=== PATIENT | male | born 1930 | race Caucasian/White ===

== ENCOUNTER 2017-01-01 23:24 | Inpatient (IN) | payer MEDICARE, OTHER ==
[~2017-01-01] VITALS: Ht 182.9 cm; Wt 68.0 kg
[2017-01-01 23:24] VITALS: BP 123/50
--- NOTE | 2017-01-01 23:33 | Emergency Room Report ---
History of Present Illness General Chief Complaint: Generalized Weakness Source: Patient Present Illness HPI Is an 86-year-old male with multiple medical problems. He lives with 2 roommates at home. He presents with chief complaint of altered mental status. He fell last week with a head injury. Did not go to the doctor or ER. Patient call 911 because of generalized weakness. Especially stands up. According to middleware engineer, when they stood him up he stiffen up with eyes chemical in the back of his head. After minute he is back to baseline. No new trauma. No fever or chills. No chest pain. No diaphoresis. No palpitation. I spoke to patient shovel mechanic and power of commercial real estate attorney. His name is Thompson Ward, . He said that system fall last week patient would go through episodes of problems speaking. He also also complaining of a problem with gripping things. Allergies: Coded Allergies: No Known Allergies (Verified , 01/30/08) Patient History Past Medical History: see triage record, old chart reviewed Past Surgical History: other Pertinent Family History: none Social History: Denies: smoking Immunizations: other Reviewed Nursing Documentation: PMH: Agreed, PSxH: Agreed Nursing Documentation-PMH Hx Cancer: Yes - PROSTATE Hx Neurological Problems: Yes - PARKINSONS Review of Systems Constitutional: Reports: weakness Eye: Denies: eye pain, blurred vision ENT: Denies: ear pain, nose congestion, throat swelling Respiratory: Denies: cough, shortness of breath Cardiovascular: Denies: chest pain, palpitations Gastrointestinal: Denies: abdominal pain, diarrhea, nausea, vomiting Musculoskeletal: Denies: back pain, joint pain Skin: Denies: rash Neurological: Denies: headache, numbness Endocrine: Denies: increased thirst, increased urine Hematologic/Lymphatic: Denies: easy bruising All Other Systems: negative except mentioned in HPI Physical Exam Vital Signs Date Time Temp Pulse Resp B/P (MAP) Pulse Ox O2 Delivery O2 Flow Rate FiO2 01/01/17 23:20 97.3 56 15 123/50 99 Room Air vitals normal Sp02 EP Interpretation: reviewed, normal General Appearance: well appearing, no apparent distress, alert Head: normocephalic, other - Ecchymosis and small hematoma to the right parietal/forehead area. Eyes: bilateral eye PERRL, bilateral eye EOMI ENT: hearing grossly normal, normal pharynx Neck: full range of motion, supple, no meningismus Respiratory: chest non-tender, lungs clear, normal breath sounds Cardiovascular #1: regular rate, rhythm, no murmur Gastrointestinal: normal bowel sounds, non tender, no mass, no organomegaly, no bruit, non-distended Musculoskeletal: back normal, normal range of motion Psychiatric: mood/affect normal Skin: warm/dry Medical Decision Making Diagnostic Impression: Primary Impression: Syncope Qualified Codes: R55 - Syncope and collapse Additional Impressions: TIA (transient ischemic attack) Qualified Codes: G45.9 - Transient cerebral ischemic attack, unspecified Weakness ER Course Patient with syncope. He may have multiple TIA. Not a candidate for TPA since no symptoms now. No evidence of any bleed. I gave him aspirin here. No evidence of infection. Will admit for further workup. I contacted Dr. Lennon. She will admit for Dr. Dias. Laboratory Tests Test 01/01/17 23:50 White Blood Count 6.7 K/UL (4.8-10.8) Red Blood Count 3.70 M/UL (4.70-6.10) L Hemoglobin 11.0 G/DL (14.2-18.0) L Hematocrit 34.9 % (42.0-52.0) L Mean Corpuscular Volume 94 FL (80-99) Mean Corpuscular Hemoglobin 29.6 PG (27.0-31.0) Mean Corpuscular Hemoglobin Concent 31.5 G/DL (32.0-36.0) L Red Cell Distribution Width 12.3 % (11.6-14.8) Platelet Count 210 K/UL (150-450) Mean Platelet Volume 6.5 FL (6.5-10.1) Neutrophils (%) (Auto) 72.1 % (45.0-75.0) Lymphocytes (%) (Auto) 14.0 % (20.0-45.0) L Monocytes (%) (Auto) 9.2 % (1.0-10.0) Eosinophils (%) (Auto) 3.3 % (0.0-3.0) H Basophils (%) (Auto) 1.5 % (0.0-2.0) Urine Color Pale yellow Urine Appearance Clear Urine pH 5 (4.5-8.0) Urine Specific [place] 1.020 (1.005-1.035) Urine Protein 1+ (NEGATIVE) H Urine Glucose (UA) Negative (NEGATIVE) Urine Ketones Negative (NEGATIVE) Urine Occult Blood 1+ (NEGATIVE) H Urine Nitrite Negative (NEGATIVE) Urine Bilirubin Negative (NEGATIVE) Urine Urobilinogen Normal MG/DL (0.0-1.0) Urine Leukocyte Esterase 1+ (NEGATIVE) H Urine RBC 2-4 /HPF (0 - 0) H Urine WBC 2-4 /HPF (0 - 0) Urine Squamous Epithelial Cells Occasional /LPF Urine Bacteria Occasional /HPF (NONE) Sodium Level 135 MMOL/L (136-145) L Potassium Level 4.0 MMOL/L (3.5-5.1) Chloride Level 101 MMOL/L (98-107) Carbon Dioxide Level 27 MMOL/L (21-32) Anion Gap 7 (5-15) Blood Urea Nitrogen 33 mg/dL (7-18) H Creatinine 1.1 MG/DL (0.55-1.30) Estimat Glomerular Filtration Rate mL/min (>60) Glucose Level 129 MG/DL (74-106) H Calcium Level 8.6 MG/DL (8.5-10.1) Total Bilirubin 0.4 MG/DL (0.2-1.0) Aspartate Amino Transf (AST/SGOT) 13 U/L (15-37) L Alanine Aminotransferase (ALT/SGPT) 8 U/L (12-78) L Alkaline Phosphatase 34 U/L (46-116) L Total Creatine Kinase 22 U/L (26-308) L Creatine Kinase MB 0.6 NG/ML (0.0-3.6) Creatine Kinase MB Relative Index 2.7 Troponin I 0.017 ng/mL (0.000-0.056) Pro-B-Type Natriuretic Peptide 810 (0-125) H Total Protein 6.9 G/DL (6.4-8.2) Albumin 3.5 G/DL (3.4-5.0) Globulin 3.4 g/dL Albumin/Globulin Ratio 1.0 (1.0-2.7) Lab Results Impression labs unremarkable EKG Diagnostic Results Rate: bradycardiac Rhythm: NSR ST Segments: no acute changes Rhythm Strip Diag. Results Rhythm Strip Time: 23:33 EP Interpretation: yes Rate: 55 Rhythm: NSR, no PVC's, no ectopy Chest X-Ray Diagnostic Results Chest X-Ray Diagnostic Results : Chest X-Ray Ordered: Yes # of Views/Limited/Complete: 1 View Indication: Chest Pain EP Interpretation: Yes Interpretation: no consolidation, no effusion, no pneumothorax, no acute cardiopulmonary disease Impression: No acute disease Electronically Signed by: Electronically signed by Alvaro Hines MD Last Vital Signs Date Time Temp Pulse Resp B/P (MAP) Pulse Ox O2 Delivery O2 Flow Rate FiO2 01/01/17 23:20 97.3 56 15 123/50 99 Room Air Status: improved Disposition: ADMITTED INPATIENT Condition: Serious ALVARO HINES M.D. Jan 01, 2017 23:33
[2017-01-02] VITALS (7 sets, daily range): BP systolic 123–145; BP diastolic 53–66
[2017-01-02 00:09] LABS: APPEARANCE,URINE CLEAR; KETONES,URINE NEGATIVE (NEGATIVE); LEUKOCYTE ESTERASE ,URINE 1+ (NEGATIVE); NITRITE,URINE NEGATIVE (NEGATIVE); PH,URINE 5 (4.5-8.0); PROTEIN,URINE 1+ (NEGATIVE); UROBILINOGEN,URINE NORMAL MG/DL (0.0-1.0)
[2017-01-02 00:10] LABS: BASOPHILS % (AUTO) 1.5 % (0.0-2.0); EOSINOPHILS % (AUTO) 3.3 % (0.0-3.0); MEAN CORPUSCULAR HEMOGLOBIN 29.6 PG (27.0-31.0); MEAN CORPUSCULAR HGB CONC 31.5 G/DL (32.0-36.0); MEAN CORPUSCULAR VOLUME 94 FL (80-99); MEAN PLATELET VOLUME 6.5 FL (6.5-10.1); MONOCYTES % (AUTO) 9.2 % (1.0-10.0); NEUTROPHILS % (AUTO) 72.1 % (45.0-75.0); PLATELET COUNT 210 K/UL (150-450); RED CELL DISTRIBUTION WIDTH 12.3 % (11.6-14.8); WHITE BLOOD COUNT 6.7 K/UL (4.8-10.8)
[2017-01-02 00:29] LABS: BACTERIA,URINE OCCASIONAL /HPF; SQUAMOUS EPITHELIAL CELL,UR OCCASIONAL /LPF (NONE/OCC)
[2017-01-02 00:39] LABS: ALANINE AMINOTRANSFERASE 8 U/L (12-78); ANION GAP 7 (5-15); ASPARTATE AMINO TRANSFERASE 13 U/L (15-37); CALCIUM 8.6 MG/DL (8.5-10.1); CARBON DIOXIDE 27 MMOL/L (21-32); CHLORIDE 101 MMOL/L (98-107); CKMB 0.6 NG/ML (0.0-3.6); CREATININE 1.1 MG/DL (0.55-1.30); SODIUM 135 MMOL/L (136-145); TOTAL PROTEIN 6.9 G/DL (6.4-8.2)
[2017-01-02] MEDS ORDERED: GLAUCOMA EYE DROPS (01:49)
[2017-01-02] MEDS ORDERED: FLUOXETINE HCL10 MG ORAL (01:49)
[2017-01-02] MEDS ORDERED: ALLOPURINOL100 M1 ORAL (01:49)
[2017-01-02] MEDS ORDERED: Aspirin Baby 81mg ORAL ONE (02:15)
--- NOTE | 2017-01-02 08:51 | History and Physical ---
History of Present Illness General Date patient seen: Jan 02, 2017 Time patient seen: 08:51 Reason for Hospitalization: Syncope Present Illness HPI 86y/o male with pmh of gout, depression, borderline DM, prostate CA who presents with syncope and AMS. Pt had a fall abt 1 week ago at home--he fell down and bumped his R side of his head. He did not see a doctor. He notes dizziness with standing, like he is abt to passout. He describes it as lightheadedness, vertigo and imbalance. He also c/o generalized weakness. The paramedics were called in and when they stood him up, he stiffened up and his eyes rolled back and he was unresponsive. After about a minute, he became responsive again. Currently, pt feels well while lying in bed. Denies f/c, n/v, d/c, chest pain, SOB, abd pain Allergies: Coded Allergies: No Known Allergies (Verified , 01/30/08) Medication History Scheduled Allopurinol* (Allopurinol*), 100 MG ORAL DAILY, (Reported) Fluoxetine Hcl* (Fluoxetine Hcl*), 10 MG ORAL DAILY, (Reported) Miscellaneous Medications [Glaucoma Eye Drops], (Reported) Patient History History Provided By: Patient, Medical Record, EMS Healthcare decision maker Resuscitation status Full Code Advanced Directive on File No Past Medical/Surgical History Past Medical/Surgical History: (1) Prostate CA (2) Gout (3) Depression (4) Borderline diabetes mellitus Family History Family History: Patient reports no known family medical history. Social History Social History: (1) Lives with roommates Review of Systems Constitutional: Reports: weakness Eye: Reports: no symptoms ENT: Reports: no symptoms Respiratory: Reports: no symptoms Cardiovascular: Reports: no symptoms Gastrointestinal: Reports: no symptoms Genitourinary: Reports: no symptoms Musculoskeletal: Reports: no symptoms Skin: Reports: no symptoms Psychiatric: Reports: no symptoms Neurological: Reports: syncope, dizziness Endocrine: Reports: no symptoms Hematologic/Lymphatic: Reports: no symptoms Physical Exam Physical Exam Narrative General: alert, cooperative, no distress, appears stated age Head: normocephalic, without obvious abnormality, atraumatic Eyes: conjunctivae/corneas clear. PERRL, EOM's intact Throat: lips, mucosa, and tongue normal. MMM Neck: supple, symmetrical, trachea midline, and no JVD Lungs: clear to auscultation bilaterally Heart: regular rate and rhythm, S1, S2 normal, no murmur, click, rub or gallop Abdomen: soft, non-tender, non-distended, bowel sounds normal; no masses or organomegaly Extremities: extremities normal, atraumatic, no cyanosis or edema Pulses: 2+ and symmetric Skin: skin color, texture, turgor normal; no rashes or lesions Neurologic: grossly normal, no focal deficits Last 24 Hour Vital Signs Date Time Temp Pulse Resp B/P (MAP) Pulse Ox O2 Delivery O2 Flow Rate FiO2 01/02/17 08:34 97.1 59 20 145/59 97 Room Air 01/02/17 04:00 61 01/02/17 04:00 97.9 59 18 144/66 98 Room Air 01/02/17 02:32 97.3 59 17 128/57 97 Room Air 01/02/17 02:32 97.5 58 18 129/55 99 Room Air 01/02/17 01:24 97.5 57 17 128/58 97 Room Air 01/01/17 23:24 97.3 55 15 123/50 99 Room Air 01/01/17 23:20 97.3 56 15 123/50 99 Room Air Intake and Output 01/02/17 01/03/17 19:00 07:00 Intake Total 240 ml Output Total 300 ml Balance -60 ml Intake Oral 240 ml Output Urine Total 300 ml Laboratory Tests Test 01/01/17 23:50 White Blood Count 6.7 K/UL (4.8-10.8) Red Blood Count 3.70 M/UL (4.70-6.10) L Hemoglobin 11.0 G/DL (14.2-18.0) L Hematocrit 34.9 % (42.0-52.0) L Mean Corpuscular Volume 94 FL (80-99) Mean Corpuscular Hemoglobin 29.6 PG (27.0-31.0) Mean Corpuscular Hemoglobin Concent 31.5 G/DL (32.0-36.0) L Red Cell Distribution Width 12.3 % (11.6-14.8) Platelet Count 210 K/UL (150-450) Mean Platelet Volume 6.5 FL (6.5-10.1) Neutrophils (%) (Auto) 72.1 % (45.0-75.0) Lymphocytes (%) (Auto) 14.0 % (20.0-45.0) L Monocytes (%) (Auto) 9.2 % (1.0-10.0) Eosinophils (%) (Auto) 3.3 % (0.0-3.0) H Basophils (%) (Auto) 1.5 % (0.0-2.0) Urine Color Pale yellow Urine Appearance Clear Urine pH 5 (4.5-8.0) Urine Specific [place] 1.020 (1.005-1.035) Urine Protein 1+ (NEGATIVE) H Urine Glucose (UA) Negative (NEGATIVE) Urine Ketones Negative (NEGATIVE) Urine Occult Blood 1+ (NEGATIVE) H Urine Nitrite Negative (NEGATIVE) Urine Bilirubin Negative (NEGATIVE) Urine Urobilinogen Normal MG/DL (0.0-1.0) Urine Leukocyte Esterase 1+ (NEGATIVE) H Urine RBC 2-4 /HPF (0 - 0) H Urine WBC 2-4 /HPF (0 - 0) Urine Squamous Epithelial Cells Occasional /LPF Urine Bacteria Occasional /HPF (NONE) Sodium Level 135 MMOL/L (136-145) L Potassium Level 4.0 MMOL/L (3.5-5.1) Chloride Level 101 MMOL/L (98-107) Carbon Dioxide Level 27 MMOL/L (21-32) Anion Gap 7 (5-15) Blood Urea Nitrogen 33 mg/dL (7-18) H Creatinine 1.1 MG/DL (0.55-1.30) Estimat Glomerular Filtration Rate mL/min (>60) Glucose Level 129 MG/DL (74-106) H Calcium Level 8.6 MG/DL (8.5-10.1) Total Bilirubin 0.4 MG/DL (0.2-1.0) Aspartate Amino Transf (AST/SGOT) 13 U/L (15-37) L Alanine Aminotransferase (ALT/SGPT) 8 U/L (12-78) L Alkaline Phosphatase 34 U/L (46-116) L Total Creatine Kinase 22 U/L (26-308) L Creatine Kinase MB 0.6 NG/ML (0.0-3.6) Creatine Kinase MB Relative Index 2.7 Troponin I 0.017 ng/mL (0.000-0.056) Pro-B-Type Natriuretic Peptide 810 (0-125) H Total Protein 6.9 G/DL (6.4-8.2) Albumin 3.5 G/DL (3.4-5.0) Globulin 3.4 g/dL Albumin/Globulin Ratio 1.0 (1.0-2.7) Height (Feet): 6 Height (Inches): 8.00 Weight (Pounds): 150 Medications Current Medications Medications (Trade) Dose Ordered Sig/Sony Route PRN Reason Start Time Stop Time Status Last Admin Dose Admin Acetaminophen (Tylenol) 650 mg Q4H PRN ORAL Mild Pain (Pain Scale 1-3) 01/02/17 02:15 02/01/17 02:14 Dextrose (Dextrose 50%) STAT PRN IV Hypoglycemia 01/02/17 02:15 02/01/17 02:14 Influenza Virus Vaccine Quadrival (Flu Vaccine Quadrivalent) 0.5 ml ONCE ONCE IM 01/02/17 09:00 01/02/17 09:01 Pneumococcal Polyvalent Vaccine (Pneumovax) 0.5 ml ONCE ONCE IM 01/02/17 10:00 01/02/17 10:01 Sodium Chloride 1,000 ml @ 75 mls/hr [id number] IVLG 01/02/17 03:02 02/01/17 03:01 01/02/17 03:19 Assessment/Plan Problem List: (1) Syncope ICD Codes: R55 - Syncope and collapse SNOMED: 001900229, [id number] Qualifiers: Qualified Codes: R55 - Syncope and collapse (2) Generalized weakness ICD Codes: R53.1 - Weakness SNOMED: 97768293 (3) Acute encephalopathy ICD Codes: G93.40 - Encephalopathy, unspecified SNOMED: 7776885 (4) MCI (mild cognitive impairment) ICD Codes: G31.84 - Mild cognitive impairment, so stated SNOMED: 232199075 (5) Gout ICD Codes: M10.9 - Gout, unspecified SNOMED: 81723926 (6) Depression ICD Codes: F32.9 - Major depressive disorder, single episode, unspecified SNOMED: 16260896 (7) Prostate CA ICD Codes: C61 - Malignant neoplasm of prostate SNOMED: 926056257 (8) Borderline diabetes mellitus ICD Codes: R73.03 - Prediabetes SNOMED: 471888493 Status: stable Assessment/Plan Syncope likely 2/2 orthostatic hypotension Admit inpt Trend trop/EKG Check orthostatic vitals Check TTE Check carotid duplex Cardiology eval Neurology eval PT/OT eval Cont home meds DVT Prophylaxis: SCD, HSQ Code Status: Full Hospital Classification Declaration: Based on this initial evaluation, and depending on the patient's clinical course, I anticipate that this patient will require hospitalization for 2-3 days for syncope and close respiratory/ hemodynamic monitoring. Disposition: Once the patient is stable to leave the hospital, I anticipate the patient will likely be discharged to the following environment: home with HH vs SNF I spent 70 minutes on this patient's case, and 40 minutes were dedicated to counseling and/or care coordination. Discussed with patient/family, nursing staff, SW/CM, cardiology, neurology regarding clinical status, treatment course , and disposition planning. Time of note may not reflect time of encounter. Jammie Hernandez M.D. Jan 02, 2017 08:51
[2017-01-02] MEDS ORDERED: Flu Vaccine Quadrivalent 0.5ml IM ONE (09:00)
--- NOTE | 2017-01-02 09:04 | Diagnostic Imaging Report ---
Indication: TRAUMA, pain, status post fall Technique: spiral acquisitions obtained through the brain. Angled axial and coronal 5 x 5 mm slices were reconstructed. No IV contrast utilized. Radiation dose was minimized using automated exposure control Total dose length product 1400 mGycm. CTDIvol(s) 70 mGy Comparison: none FINDINGS: No acute hemorrhage or edema. No mass effect or midline shift. There is age-related enlargement of the ventricles and extra axial CSF spaces. There is periventricular deep white matter ischemic change. Normal aburto-white differentiation. Visualized orbits are unremarkable. Visualized sinuses are unremarkable. Intact calvarium. Small focus of soft tissue swelling is seen in the right temporal scalp, and questionably in the left temporal scalp as well. IMPRESSION: Chronic and age-related changes. Negative for acute intracranial bleed or mass effect Evidence of right and possibly left temporal scalp soft tissue injury This agrees with the preliminary interpretation provided overnight by [facility] teleradiology service. The CT scanner at [facility] is accredited by the [employer] and the scans are performed using protocols designed to limit radiation exposure to as low as reasonably achievable to attain images of sufficient resolution adequate for diagnostic evaluation
[2017-01-02] MEDS ORDERED: Pneumococcal Vaccine 25mcg/0.5ml IM ONE (10:00)
[2017-01-02] MEDS: FLUoxetine 10mg cap ORAL SCH (10:45)
[2017-01-02] MEDS: Allopurinol 100mg Tab ORAL SCH (10:45)
[2017-01-02 10:57] LABS: BASOPHILS % (AUTO) 0.8 % (0.0-2.0); EOSINOPHILS % (AUTO) 3.9 % (0.0-3.0); MEAN CORPUSCULAR HEMOGLOBIN 30.7 PG (27.0-31.0); MEAN CORPUSCULAR HGB CONC 33.2 G/DL (32.0-36.0); MEAN CORPUSCULAR VOLUME 93 FL (80-99); MEAN PLATELET VOLUME 7.1 FL (6.5-10.1); MONOCYTES % (AUTO) 10.5 % (1.0-10.0); NEUTROPHILS % (AUTO) 68.8 % (45.0-75.0); PLATELET COUNT 176 K/UL (150-450); RED BLOOD COUNT 3.51 M/UL (4.70-6.10); RED CELL DISTRIBUTION WIDTH 12.7 % (11.6-14.8); WHITE BLOOD COUNT 5.5 K/UL (4.8-10.8)
--- NOTE | 2017-01-02 11:04 | Consultation ---
Consult Note Consult Note NEUROLOGY CONSULTATION: Full note dictated #[id number] 86 y/o, RH, CM with PH of borderline DM, frequent episodes of low blood pressure with episodes of falling down and unclear if he loses consciousness, psoraisis, prostate cancer, visual and hearing problems. He fell last week with a right frontal head injury. He did not go to seek medical attention. The paramedics were called in due to generalized weakness especially when he stands up. According to paramedics, when they stood him up he stiffened up and his eyes rolled back. After minute he is back to baseline. He was hospitalized on 01/01/17 for these problems. ON EXAM: Mild disorientation. Mild problems with memory and HCF Mild anomia Decreased DTRs CT of brain with atrophy and DWM changes. Labs with mild anemia, mildly elevated BUN, elevated BNP, and mild UTI. IMPRESSION: Possible near syncopal vs syncopal events - less likely to be seizures. MCI Neuropathic process REC: EEG W/U MCI and neuropathy Mobilize with PT/OT Celestine Chowdhury M.D., M.S.P.H. CELESTINE CHOWDHURY Jan 02, 2017 11:04
[2017-01-02 11:06] LABS: ANION GAP 4 (5-15); CALCIUM 8.2 MG/DL (8.5-10.1); CARBON DIOXIDE 29 MMOL/L (21-32); CHLORIDE 106 MMOL/L (98-107); POTASSIUM 4.1 MMOL/L (3.5-5.1); SODIUM 139 MMOL/L (136-145)
[2017-01-02 12:02] LABS: CHOLESTEROL 144 MG/DL (< 200); CHOLESTEROL/HDL RATIO 2.6 (3.3-4.4); MAGNESIUM 2.1 MG/DL (1.8-2.4); PHOSPHORUS 2.8 MG/DL (2.5-4.9); THYROID STIMULATING HORMONE 1.093 uiU/mL (0.360-3.740)
--- NOTE | 2017-01-02 12:25 | Diagnostic Imaging Report ---
Indication: SYNCOPE Technique: One view of the chest Comparison: 04/02/2007 Findings: Lungs and pleural spaces are clear. Heart size is upper limits normal. Aorta is tortuous and calcified. The upper mediastinum is unremarkable. No significant change Impression: No acute process
--- NOTE | 2017-01-02 15:15 | Cardiac Electrophysiology PN ---
Subjective Subjective Cardiology consult dictated. [id number] Objective Last 24 Hour Vital Signs Date Time Temp Pulse Resp B/P (MAP) Pulse Ox O2 Delivery O2 Flow Rate FiO2 01/02/17 12:10 70 01/02/17 12:05 64 01/02/17 12:00 61 01/02/17 11:47 96.9 60 20 140/65 98 Room Air 01/02/17 08:34 97.1 59 20 145/59 97 Room Air 01/02/17 08:00 63 01/02/17 04:00 61 01/02/17 04:00 97.9 59 18 144/66 98 Room Air 01/02/17 02:32 97.3 59 17 128/57 97 Room Air 01/02/17 02:32 97.5 58 18 129/55 99 Room Air 01/02/17 01:24 97.5 57 17 128/58 97 Room Air 01/01/17 23:24 97.3 55 15 123/50 99 Room Air 01/01/17 23:20 97.3 56 15 123/50 99 Room Air Intake and Output 01/02/17 01/03/17 19:00 07:00 Intake Total 480 ml Output Total 300 ml Balance 180 ml Intake Oral 480 ml Output Urine Total 300 ml Laboratory Tests Test 01/01/17 23:50 01/02/17 10:15 White Blood Count 6.7 K/UL (4.8-10.8) 5.5 K/UL (4.8-10.8) Red Blood Count 3.70 M/UL (4.70-6.10) L 3.51 M/UL (4.70-6.10) L Hemoglobin 11.0 G/DL (14.2-18.0) L 10.8 G/DL (14.2-18.0) L Hematocrit 34.9 % (42.0-52.0) L 32.5 % (42.0-52.0) L Mean Corpuscular Volume 94 FL (80-99) 93 FL (80-99) Mean Corpuscular Hemoglobin 29.6 PG (27.0-31.0) 30.7 PG (27.0-31.0) Mean Corpuscular Hemoglobin Concent 31.5 G/DL (32.0-36.0) L 33.2 G/DL (32.0-36.0) Red Cell Distribution Width 12.3 % (11.6-14.8) 12.7 % (11.6-14.8) Platelet Count 210 K/UL (150-450) 176 K/UL (150-450) Mean Platelet Volume 6.5 FL (6.5-10.1) 7.1 FL (6.5-10.1) Neutrophils (%) (Auto) 72.1 % (45.0-75.0) 68.8 % (45.0-75.0) Lymphocytes (%) (Auto) 14.0 % (20.0-45.0) L 16.0 % (20.0-45.0) L Monocytes (%) (Auto) 9.2 % (1.0-10.0) 10.5 % (1.0-10.0) H Eosinophils (%) (Auto) 3.3 % (0.0-3.0) H 3.9 % (0.0-3.0) H Basophils (%) (Auto) 1.5 % (0.0-2.0) 0.8 % (0.0-2.0) Urine Color Pale yellow Urine Appearance Clear Urine pH 5 (4.5-8.0) Urine Specific [place] 1.020 (1.005-1.035) Urine Protein 1+ (NEGATIVE) H Urine Glucose (UA) Negative (NEGATIVE) Urine Ketones Negative (NEGATIVE) Urine Occult Blood 1+ (NEGATIVE) H Urine Nitrite Negative (NEGATIVE) Urine Bilirubin Negative (NEGATIVE) Urine Urobilinogen Normal MG/DL (0.0-1.0) Urine Leukocyte Esterase 1+ (NEGATIVE) H Urine RBC 2-4 /HPF (0 - 0) H Urine WBC 2-4 /HPF (0 - 0) Urine Squamous Epithelial Cells Occasional /LPF Urine Bacteria Occasional /HPF (NONE) Sodium Level 135 MMOL/L (136-145) L 139 MMOL/L (136-145) Potassium Level 4.0 MMOL/L (3.5-5.1) 4.1 MMOL/L (3.5-5.1) Chloride Level 101 MMOL/L (98-107) 106 MMOL/L (98-107) Carbon Dioxide Level 27 MMOL/L (21-32) 29 MMOL/L (21-32) Anion Gap 7 (5-15) 4 (5-15) L Blood Urea Nitrogen 33 mg/dL (7-18) H 26 mg/dL (7-18) H Creatinine 1.1 MG/DL (0.55-1.30) 1.0 MG/DL (0.55-1.30) Estimat Glomerular Filtration Rate mL/min (>60) mL/min (>60) Glucose Level 129 MG/DL (74-106) H 109 MG/DL (74-106) H Calcium Level 8.6 MG/DL (8.5-10.1) 8.2 MG/DL (8.5-10.1) L Total Bilirubin 0.4 MG/DL (0.2-1.0) Aspartate Amino Transf (AST/SGOT) 13 U/L (15-37) L Alanine Aminotransferase (ALT/SGPT) 8 U/L (12-78) L Alkaline Phosphatase 34 U/L (46-116) L Total Creatine Kinase 22 U/L (26-308) L Creatine Kinase MB 0.6 NG/ML (0.0-3.6) Creatine Kinase MB Relative Index 2.7 Troponin I 0.017 ng/mL (0.000-0.056) 0.017 ng/mL (0.000-0.056) Pro-B-Type Natriuretic Peptide 810 (0-125) H Total Protein 6.9 G/DL (6.4-8.2) Albumin 3.5 G/DL (3.4-5.0) Globulin 3.4 g/dL Albumin/Globulin Ratio 1.0 (1.0-2.7) Pending Erythrocyte Sedimentation Rate 35 MM/HR (0-30) H Hemoglobin A1c 6.6 % (4.3-6.0) H Phosphorus Level 2.8 MG/DL (2.5-4.9) Magnesium Level 2.1 MG/DL (1.8-2.4) Total Protein (PEP) Pending Albumin (PEP) Pending Globulin (PEP) Pending Thucm-[id number] Pending [id number] Pending Beta Globulins Pending Beta Gamma Globulin Pending PEP Abnormal Protein Bands Pending Protein Electrophoresis Interpret Pending Triglycerides Level 81 MG/DL (0-200) Cholesterol Level 144 MG/DL (< 200) LDL Cholesterol 84 mg/dL (<100) HDL Cholesterol 56 MG/DL (40-60) Cholesterol/HDL Ratio 2.6 (3.3-4.4) L Vitamin B12 Level 363 PG/ML (193-986) Vitamin D 25-Hydroxy Pending 25-Hydroxy Vitamin D2 Pending 25-Hydroxy Vitamin D3 Pending Folate Pending Thyroid Stimulating Hormone (TSH) 1.093 uiU/mL (0.360-3.740) Rapid Plasma Reagin Pending LAVONNE HUTCHINS Jan 02, 2017 15:15
--- NOTE | 2017-01-02 16:45 | Consultation ---
DATE OF CONSULTATION: 01/02/2017 NEUROLOGY CONSULTATION CONSULTING PHYSICIAN: James Chowdhury M.D. REQUESTING PHYSICIAN: Jammie Hernandez M.D. HISTORY: Mr. Enrique Abernathy is an 86-year-old, right-handed, gentleman, who does have a past history of borderline diabetes mellitus, frequent episodes of low blood pressure associated with falling down and possibly loss of consciousness, psoriasis, prostate cancer, and visual and hearing problems. He was functioning relatively well until approximately a week ago when he apparently fell down at home and bumped the right side of his head. He did not seek any medical attention following that. However over the next few days, he started to feel generally weak especially when he stood up, he felt dizzy and had a sensation that he may pass out. It is unclear if he had passed out a few times or not. Anyway because of these problems, the paramedics were called in and due to generalized weakness, he was evaluated by them. When they stood him up, he stiffened up and his eyes rolled back and he was unresponsive. After about a minute, he became responsive again. He was then brought into the [facility] emergency room and has since been hospitalized. At this point in time, he feels quite well. He denies any headache, nausea, vomiting, dizziness, lightheadedness, vertigo, weakness on one side or the other, numbness on one side or the other, problems with speech, problems with language, problems with vision, or problems with his memory. PAST MEDICAL HISTORY: Significant for borderline diabetes mellitus, psoriasis, prostate cancer, visual problems, hearing problems, episodic dizziness, lightheadedness, and a sensation that he may fall down with definite episodes of falling down with or without loss of consciousness. FAMILY HISTORY: Nothing significant. PERSONAL HISTORY: Home: He lives at home. Two of his students live with him. Work: He teaches acting. Habits: He denies the use of tobacco or illicit drugs, but does consume approximately one alcoholic drink in a week. PRESENT MEDICATIONS: Include allopurinol, Prozac, Tylenol p.r.n., and aspirin 162 mg daily. PHYSICAL EXAMINATION: GENERAL: He is a well-developed, well-nourished, pleasant gentleman, lying in bed, in no acute distress. VITAL SIGNS: Pulse 60 per minute, blood pressure 145/59 mmHg, respirations 20 per minute, and temperature 97.1 degrees Fahrenheit. HEAD: Normocephalic with right frontal scalp hematoma, which looks like it is at least a few days old. EENT: Examination benign. NECK: No neck rigidity was observed. NEUROLOGIC EXAMINATION: MENTAL STATUS EXAMINATION: He was awake and alert. He was oriented to self. He thought he was at [facility]. He knew it was December 2016, but did not know the date. He was able to recall 3/3 words immediately, but could only remember 2/3 words in 1 minute and 3 minutes. He was able to remember presidents Trump through [employer]. His mathematical skills were good. His visuospatial function was preserved. SPEECH: He had no dysarthria. LANGUAGE: He had a mild anomia for low-frequency words. CRANIAL NERVE EXAMINATION: II: The visual cornelius were intact on confrontation testing. III, IV & : The external ocular movements were full and the pupils 3 mm in diameter, equal, round, regular, and reactive to light. V: He had normal facial sensations and the temporales, masseters, and pterygoids functioned normally. VII: He had normal facial expressions and no facial asymmetry. VIII: Hearing was decreased to finger rubbing bilaterally. He was able to hear finger tapping bilaterally. He had no nystagmus. IX: The palate moved symmetrically on phonation. X: He had no hoarseness of voice. XI: The sternocleidomastoids and trapezii functioned normally. XII: The tongue is in the midline without any fasciculations or atrophy. MOTOR SYSTEM: The tone was normal in all four extremities. Examination of muscle mass revealed no focal wasting. Examination of power revealed G 5/5 power in all muscle groups tested. SENSORY EXAMINATION: He had intact sensations to pinprick, light touch, and graphesthesia. Position sense was diminished in the toes bilaterally, but was normal in the fingers bilaterally. COORDINATION: He performed well on cqxbun-ua-emza and igyh-cl-ujas testing. Romberg test could not be performed. REFLEXES: Trace+ and bilaterally symmetrical at the biceps, triceps, brachioradialis, and knees and 0 at both ankles. The plantar responses were flexor bilaterally. STANCE: He stood up with support. GAIT: He walked well with support. DIAGNOSTIC IMPRESSION: 1. Mr. Enrique Abernathy is an 86-year-old, right-handed, gentleman, who does have a past history of borderline diabetes mellitus, frequent episodes of low blood pressure leading to falls and at times loss of consciousness, psoriasis, prostate cancer, and visual and hearing problems, who approximately a week ago fell down and bumped the right side of his head without loss of consciousness. He did not seek medical attention following that, however, he started to feel generally unwell and weak. When the paramedics were called in to see him, he apparently had a syncopal episode. He has since been hospitalized. 2. On neurological examination, at this time, he is mildly disoriented to place and the exact date. He does have problems with memory and higher cognitive function. He also has a mild anomia. The deep tendon reflexes are globally diminished. 3. The CT scan of the brain without contrast reveals atrophy and deep white matter changes, but no acute pathology. 4. Laboratory data revealed that he is mildly anemic with a hemoglobin of 11.0. His BUN is elevated to 33. His blood glucose is elevated to 129. His proBNP is elevated to 810. His urinalysis reveals 1+ leukocyte esterase, but 2 to 4 red blood cells and 2 to 4 white blood cells per high-power field. 5. The patient's history, neurological examination, and laboratory data are most compatible with a possible syncopal episode yesterday when the paramedics were evaluating him and possibly other recent near syncopal or syncopal episodes. They are less likely to be ictal in nature. 6. 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 It is unclear if this is due to an encephalopathy or due to other reasons. 7. The patient does also exhibit signs of a neuropathic process, which could be contributing to his blood pressure fluctuations and falls and it should be worked up. RECOMMENDATIONS: 1. Agree with management thus far. 2. An EEG will be ordered to evaluate the patient for the degree and type of cerebral dysfunction. 3. The patient should be worked up thoroughly for treatable causes of MCI and neuropathy with a CBC, chemistry panel, B12 level, folate level, vitamin D, RPR, glycohemoglobin, Westergren sedimentation rate, TSH, and hemoglobin A1c. 4. The patient should be mobilized with the help of physical and occupational therapy. Thank you for entrusting me with the care of Mr. Abernathy. I shall follow him with you. James Chowdhury M.D., M.S.P.H. DR: KYLIE JOB#: [id number] PEGGY
--- NOTE | 2017-01-02 22:57 | Cardiology Report ---
APPROVED REPORT EKG Measurement Heart [id number] Sinus bradycardia Nonspecific ST abnormality Abnormal ECG
[2017-01-03 00:11] VITALS: BP 157/66
--- NOTE | 2017-01-03 01:16 | Consultation ---
DATE OF CONSULTATION: 01/02/2017 CARDIOLOGY CONSULTATION CONSULTING PHYSICIAN: Frank Moreno M.D. REFERRING PHYSICIAN: Mehul Craven M.D. REASON FOR CONSULTATION: Syncope. HISTORY OF PRESENT ILLNESS: The patient is an 86-year-old gentleman who lives with 2 roommates at home who was brought to the emergency room for altered mental status and a fall that resulted in head injury. The patient did not go to the doctor or emergency room. The patient called 911 for generalized weakness, especially when he stands up. According to paramedics, when they stood him up, he stiffened up with eyes rolling back. After a minute, he came back to baseline. The patient denies any chest pain, palpitation, shortness of breath, or prior coronary artery disease or congestive heart failure. REVIEW OF SYSTEMS: Negative other than what was mentioned in the history of present illness. PAST MEDICAL HISTORY: 1. Benign prostatic hypertrophy. 2. Parkinson disease. SOCIAL HISTORY: He lives at home. Does not smoke or drink alcohol. FAMILY HISTORY: Noncontributory. PHYSICAL EXAMINATION: VITAL SIGNS: Blood pressure is 140/65, pulse is 60, respirations 18, temperature 97. HEAD AND NECK: No JVD. LUNGS: Clear. CARDIOVASCULAR: Regular S1 and S2 with no gallop or murmur. ABDOMEN: Soft and nontender. EXTREMITIES: No pitting edema. LABORATORY DATA: His labs show white count of 5.5, hemoglobin 10.9, hematocrit 32.5, and platelet count 176,000. Sodium 139, potassium 4.1, BUN of 26, creatinine of 1, and glucose of 109. His EKG shows sinus bradycardia at a rate of [address]-T wave abnormalities. ASSESSMENT AND PLAN: 1. Weakness, bradycardia, and syncope. We will watch the patient on telemetry. We will keep the patient off any sinus or AV luis blocking agents. We will check his thyroid function test. He already underwent echocardiogram, which showed ejection fraction of 60 to 65%. We will check orthostatic vital signs. His high BUN-creatinine ratio is suggestive of dehydration as he might have been orthostatic. 2. Benign prostatic hypertrophy. 3. Azotemia. 4. Mild anemia. Thank you very much, Dr. Craven, for allowing me to participate in the care of this patient. Please do not hesitate to contact if you have any questions regarding my evaluation. Frank Moreno M.D. DR: Ese JOB#: [id number] CC:
[2017-01-03 04:25] VITALS: BP 159/78
--- NOTE | 2017-01-03 07:54 | Cardiology Report ---
APPROVED REPORT EXAM: Two-dimensional and M-mode echocardiogram with Doppler and color Doppler. INDICATION Syncope M-Mode DIMENSIONS IVSd0.9 (0.7-1.1cm)Left Atrium (MM)4.1 (1.6-4.0cm) LVDd3.4 (3.5-5.6cm)Aortic Root3.7 (2.0-3.7cm) PWd0.9 (0.7-1.1cm)Aortic Cusp Exc.2.0 (1.5-2.0cm) LVDs2.4 (2.5-4.0cm) PWs0.9 cm Normal left ventricular chamber size, systolic function and wall motion to extent visualized. Left ventricular ejection fraction estimated to be 60-65 %. Mild left ventricular hypertrophy. Anterior Echo-free space, may be due to pericardial fat or effusion. Mild left atrial enlargement. Right cardiac chamber sizes are within normal limits. Focal aortic valve sclerosis with adequate cusp excursion. Thickened mitral valve leaflets with normal excursion. Mitral annulus and aortic root calcification. Pulmonic valve not well visualized. Normal tricuspid valve structure. IVC at normal size with physiologic collapse. A color flow and spectral Doppler study was performed and revealed: Mild aortic regurgitation. Mild mitral regurgitation. Mitral diastolic velocities suggest reduced left ventricular relaxation c/w mild LV diastolic dysfunction (Grade I). Trace to mild tricuspid regurgitation. Tricuspid systolic velocities suggests peak right ventricular systolic pressure of 29 mmHg.
[2017-01-03 07:59] LABS: ANION GAP 1 (5-15); CALCIUM 8.2 MG/DL (8.5-10.1); CARBON DIOXIDE 30 MMOL/L (21-32); CHLORIDE 108 MMOL/L (98-107); CREATININE 1.2 MG/DL (0.55-1.30); POTASSIUM 4.4 MMOL/L (3.5-5.1); SODIUM 139 MMOL/L (136-145)
[2017-01-03 08:18] VITALS: BP 143/59
[2017-01-03] MEDS: Allopurinol 100mg Tab ORAL SCH ×2 (08:45→08:50)
[2017-01-03] MEDS: FLUoxetine 10mg cap ORAL SCH (08:45)
[2017-01-03 11:25] VITALS: BP 132/52
--- NOTE | 2017-01-03 15:21 | Neurology Progress Note ---
Interim History Interim History Interim History Mr. Abernathy feels better today. He had a rough time earlier as his room-mate was throwing things on him. He has had no further episodes of loss of consciousness or lightheadedness. The mind is clear. He has not been out of bed today. Review of Systems Neuro Review of Systems Benign. Objective Physical Exam Last Vital Signs Date Time Temp Pulse Resp B/P (MAP) Pulse Ox O2 Delivery O2 Flow Rate FiO2 01/03/17 11:25 97.9 58 20 132/52 98 01/03/17 08:18 Room Air Laboratory Tests Test 01/03/17 05:50 Sodium Level 139 MMOL/L (136-145) Potassium Level 4.4 MMOL/L (3.5-5.1) Chloride Level 108 MMOL/L (98-107) H Carbon Dioxide Level 30 MMOL/L (21-32) Anion Gap 1 (5-15) L Blood Urea Nitrogen 26 mg/dL (7-18) H Creatinine 1.2 MG/DL (0.55-1.30) Estimat Glomerular Filtration Rate mL/min (>60) Glucose Level 103 MG/DL (74-106) Calcium Level 8.2 MG/DL (8.5-10.1) L Troponin I 0.004 ng/mL (0.000-0.056) Pro-B-Type Natriuretic Peptide 1217 (0-125) H Neurologic Exam Objective PHYSICAL EXAMINATION: GENERAL: He is a well-developed, well-nourished, pleasant gentleman, lying in bed, in no acute distress. HEAD: Normocephalic with right frontal scalp hematoma, which looks like it is at least a few days old. EENT: Examination benign. NECK: No neck rigidity was observed. NEUROLOGIC EXAMINATION: MENTAL STATUS EXAMINATION: He was awake and alert. He was oriented to [facility], [facility] and January 03, 2017. He was able to recall 3/3 words immediately, and could remember them in 1 minute and 3 minutes. He was able to remember presidents Trump through [employer]. His mathematical skills were good. His visuospatial function was preserved. SPEECH: He had no dysarthria. LANGUAGE: He had a mild anomia for low-frequency words. CRANIAL NERVE EXAMINATION: II: The visual cornelius were intact on confrontation testing. III, IV & : The external ocular movements were full and the pupils 3 mm in diameter, equal, round, regular, and reactive to light. V: He had normal facial sensations and the temporales, masseters, and pterygoids functioned normally. VII: He had normal facial expressions and no facial asymmetry. VIII: Hearing was decreased to finger rubbing bilaterally. He was able to hear finger tapping bilaterally. He had no nystagmus. IX: The palate moved symmetrically on phonation. X: He had no hoarseness of voice. XI: The sternocleidomastoids and trapezii functioned normally. XII: The tongue is in the midline without any fasciculations or atrophy. MOTOR SYSTEM: The tone was normal in all four extremities. Examination of muscle mass revealed no focal wasting. Examination of power revealed G 5/5 power in all muscle groups tested. SENSORY EXAMINATION: He had intact sensations to pinprick, light touch, and graphesthesia. Position sense was diminished in the toes bilaterally, but was normal in the fingers bilaterally. COORDINATION: He performed well on uoqhcd-wp-ecec and eoju-er-ykwp testing. Romberg test could not be performed. REFLEXES: Trace+ and bilaterally symmetrical at the biceps, triceps, brachioradialis, and knees and 0 at both ankles. The plantar responses were flexor bilaterally. STANCE: He stood up with support. GAIT: He walked well with support. Impression/Recommendations Diagnostic Impression 1. Mr. Enrique Abernathy is an 86-year-old, right-handed, gentleman, who does have a past history of borderline diabetes mellitus, frequent episodes of low blood pressure leading to falls and at times loss of consciousness, psoriasis, prostate cancer, and visual and hearing problems, who approximately a week ago fell down and bumped the right side of his head without loss of consciousness. He did not seek medical attention following that, however, he started to feel generally unwell and weak. When the paramedics were called in to see him, he apparently had a syncopal episode. He has since been hospitalized. 2. He feels better today and has had no fureter episodes of loss of consciousness or a feeling of lightheadedness. 3. On neurological examination, at this time, he is mildly disoriented to place and the exact date. He does have problems with memory and higher cognitive function. He also has a mild anomia. The deep tendon reflexes are globally diminished. 4. The CT scan of the brain without contrast reveals atrophy and deep white matter changes, but no acute pathology. 5. Laboratory data revealed that he is mildly anemic with a hemoglobin of 11.0. His BUN is elevated to 33. His blood glucose is elevated to 129. His proBNP is elevated to 810. His urinalysis reveals 1+ leukocyte esterase, but 2 to 4 red blood cells and 2 to 4 white blood cells per high-power field. 6. Further laboratory tests have revealed that his Hemoglobin A1c is elevated at 6.6% and his Vitamin B12 level is low at 363. 7. His EEG revealed a mild encephalopathy. 8. The patient's history, neurological examination, and laboratory data are most compatible with a possible syncopal episode on 01/01/17 when the paramedics were evaluating him and possibly other recent near syncopal or syncopal episodes. 9. 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 This could be due to a mild encephalopathy from his infectious process and B 12 deficiency or due to other reasons. 10. The patient does also exhibit signs of a neuropathic process, which could be contributing to his blood pressure fluctuations and falls. Recommendations 1. Continue present management. 2. Vitamin B 12 - 1000 mcg SC now and monthly. 3. Better blood sugar control. 4. Keep active. Celestine Chowdhury M.D., M.S.P.[address]LE[address] Jan 03, 2017 15:21
[2017-01-03 15:30] VITALS: BP 113/61
[2017-01-03] MEDS ORDERED: Vitamin B12 1000mcg/ml Inj SUBQ ONE (16:30)
--- NOTE | 2017-01-03 18:21 | Cardiac Electrophysiology PN ---
Assessment/Plan Assessment/Plan 1. Weakness, bradycardia, and syncope. No radha on tele. We will keep the patient off any sinus or AV luis blocking agents. Echo ejection fraction of 60 to 65%. Orthostatic vital signs were negative. Had EEG but couldn't go thru MRI Awaiting repeat Ct brain 2. Benign prostatic hypertrophy. 3. Azotemia. 4. Mild anemia. DW RN Subjective Subjective Feeling better. No chest pain or SOB. Objective Last 24 Hour Vital Signs Date Time Temp Pulse Resp B/P (MAP) Pulse Ox O2 Delivery O2 Flow Rate FiO2 01/03/17 15:30 98.2 64 20 113/61 98 Room Air 01/03/17 11:25 97.9 58 20 132/52 98 01/03/17 08:18 97.7 58 20 143/59 97 Room Air 01/03/17 04:25 97.3 69 20 159/78 98 Room Air 01/03/17 04:00 61 01/03/17 00:11 97.9 61 20 157/66 97 Room Air 01/03/17 00:00 65 01/03/17 00:00 61 61 01/02/17 20:00 61 01/02/17 20:00 97.9 61 20 124/58 96 Room Air Intake and Output 01/03/17 01/04/17 19:00 07:00 Intake Total 720 ml Output Total 450 ml Balance 270 ml Intake Oral 720 ml Output Urine Total 450 ml Laboratory Tests Test 01/03/17 05:50 Sodium Level 139 MMOL/L (136-145) Potassium Level 4.4 MMOL/L (3.5-5.1) Chloride Level 108 MMOL/L (98-107) H Carbon Dioxide Level 30 MMOL/L (21-32) Anion Gap 1 (5-15) L Blood Urea Nitrogen 26 mg/dL (7-18) H Creatinine 1.2 MG/DL (0.55-1.30) Estimat Glomerular Filtration Rate mL/min (>60) Glucose Level 103 MG/DL (74-106) Calcium Level 8.2 MG/DL (8.5-10.1) L Troponin I 0.004 ng/mL (0.000-0.056) Pro-B-Type Natriuretic Peptide 1217 (0-125) H Objective HEAD AND NECK: No JVD. LUNGS: Clear. CARDIOVASCULAR: Regular S1 and S2 with no gallop or murmur. ABDOMEN: Soft and nontender. EXTREMITIES: No pitting edema. LAVONNE HUTCHINS Jan 03, 2017 18:21
--- NOTE | 2017-01-03 19:31 | General Progress Note ---
Assessment/Plan Problem List: (1) Syncope ICD Codes: R55 - Syncope and collapse SNOMED: 415134985, 033411018 Qualifiers: Qualified Codes: R55 - Syncope and collapse (2) Generalized weakness ICD Codes: R53.1 - Weakness SNOMED: 87962190 (3) Acute encephalopathy ICD Codes: G93.40 - Encephalopathy, unspecified SNOMED: 9089840 (4) MCI (mild cognitive impairment) ICD Codes: G31.84 - Mild cognitive impairment, so stated SNOMED: 104442998 (5) Gout ICD Codes: M10.9 - Gout, unspecified SNOMED: 23429474 (6) Depression ICD Codes: F32.9 - Major depressive disorder, single episode, unspecified SNOMED: 24089440 (7) Prostate CA ICD Codes: C61 - Malignant neoplasm of prostate SNOMED: 935722101 (8) Borderline diabetes mellitus ICD Codes: R73.03 - Prediabetes SNOMED: 188061032 (9) B12 deficiency ICD Codes: E53.8 - Deficiency of other specified B group vitamins SNOMED: 750064556 (10) Bradycardia ICD Codes: R00.1 - Bradycardia, unspecified SNOMED: 54407818 Status: stable Assessment/Plan Syncope likely 2/2 orthostasis vs bradycardia vs autonomic process Falls maybe 2/2 imbalance from B12 deficiency Appreciate cardiology and neurology rec's Check orthostatic vitals -- neg Check TTE -- normal EF Check carotid duplex --unremarkable Check EEG -- mild encephalopathy, no e/o seizures Vit B12 supplementation MRI brain ordered but pt not able to tolerate so it was canceled. No indication for additional imaging including repeat CT scan per neuro DC plan for likely tomorrow after PT re-assessment of ambulating Cont home meds SW eval of home safety Home health ordered DVT Prophylaxis: SCD, HSQ Code Status: Full Hospital Classification Declaration: Based on this initial evaluation, and depending on the patient's clinical course, I anticipate that this patient will require hospitalization for 1-2 days for syncope and close respiratory/ hemodynamic monitoring. Disposition: Once the patient is stable to leave the hospital, I anticipate the patient will likely be discharged to the following environment: home with HH + CG vs SNF I spent 45 minutes on this patient's case, and 24 minutes were dedicated to counseling and/or care coordination. Discussed with patient/family, nursing staff, SW/CM, cardiology, neurology regarding clinical status, treatment course , and disposition planning. D/w caregiver Thompson extensively regarding plan of care Time of note may not reflect time of encounter. Subjective Date patient seen: Jan 03, 2017 Time patient seen: 10:32 ROS Limited/Unobtainable: No Constitutional: Reports: no symptoms HEENT: Reports: no symptoms Cardiovascular: Reports: no symptoms Respiratory: Reports: no symptoms Gastrointestinal/Abdominal: Reports: no symptoms Genitourinary: Reports: no symptoms Neurologic/Psychiatric: Reports: no symptoms Endocrine: Reports: no symptoms Hematologic/Lymphatic: Reports: no symptoms Allergies: Coded Allergies: No Known Allergies (Verified , 01/30/08) All Systems: reviewed and negative except above Subjective No acute o/n events TTE showed normal EF Carotid duplex unremarkable EEG showed mild encephalopathy but no e/o seizures Pt doing well. Eager to go home. Has not ambulated yet today. Did have dizziness w/ ambulation w/ PT yesterday D/w caregiver Thompson who is concerned abt d/c today. He requests MRI Objective Last 24 Hour Vital Signs Date Time Temp Pulse Resp B/P (MAP) Pulse Ox O2 Delivery O2 Flow Rate FiO2 01/03/17 15:30 98.2 64 20 113/61 98 Room Air 01/03/17 11:25 97.9 58 20 132/52 98 01/03/17 08:18 97.7 58 20 143/59 97 Room Air 01/03/17 04:25 97.3 69 20 159/78 98 Room Air 01/03/17 04:00 61 01/03/17 00:11 97.9 61 20 157/66 97 Room Air 01/03/17 00:00 65 01/03/17 00:00 61 61 01/02/17 20:00 61 01/02/17 20:00 97.9 61 20 124/58 96 Room Air Intake and Output 01/03/17 01/04/17 19:00 07:00 Intake Total 720 ml Output Total 450 ml Balance 270 ml Intake Oral 720 ml Output Urine Total 450 ml Laboratory Tests 01/03/17 05:50: Sodium Level 139, Potassium Level 4.4, Chloride Level 108H, Carbon Dioxide Level 30, Anion Gap 1L, Blood Urea Nitrogen 26H, Creatinine 1.2, Estimat Glomerular Filtration Rate , Glucose Level 103, Calcium Level 8.2L, Troponin I 0.004, Pro-B-Type Natriuretic Peptide 1217H Height (Feet): 6 Height (Inches): 8.00 Weight (Pounds): 150 Objective General: alert, cooperative, no distress, appears stated age Head: normocephalic, without obvious abnormality, atraumatic Eyes: conjunctivae/corneas clear. PERRL, EOM's intact Throat: lips, mucosa, and tongue normal. MMM Neck: supple, symmetrical, trachea midline, and no JVD Lungs: clear to auscultation bilaterally Heart: regular rate and rhythm, S1, S2 normal, no murmur, click, rub or gallop Abdomen: soft, non-tender, non-distended, bowel sounds normal; no masses or organomegaly Extremities: extremities normal, atraumatic, no cyanosis or edema Pulses: 2+ and symmetric Skin: skin color, texture, turgor normal; no rashes or lesions Neurologic: grossly normal, no focal deficits Jammie Hernandez M.D. Jan 03, 2017 19:31
[2017-01-03 20:00] VITALS: BP 141/55
--- NOTE | 2017-01-03 21:00 | Electroencephalogram ---
DATE OF PROCEDURE: 01/02/2017 REQUESTING PHYSICIAN: Mehul Craven M.D. DATE OF TRACIN01/02/2017 HISTORY: This EEG was performed on an 86-year-old gentleman with a history of borderline diabetes and prior episodes of hypotension leading to loss of consciousness. He apparently had an episode of witnessed syncope when the paramedics went to evaluate him and in addition, he has also been exhibiting some mild cognitive impairment. The purpose of this EEG was to evaluate the patient for the degree and type of cerebral dysfunction and to exclude ongoing ictal or interictal phenomena. TECHNICAL NOTE: This EEG was performed on a [employer] with electrodes placed on the scalp according to the International 10-20 system. [id number] and [id number]-[id number] montages were used. A large array of montages were available for review of the EEG with digital reformatting. The EEG was technically satisfactory and was performed in the awake, drowsy, and sleep states. OBSERVATIONS: In the best awake state, the background activity consisted of 8- 8.5 Hz alpha with some intermixed 7 Hz theta frequencies. Drowsiness was characterized by dissolution of the alpha rhythm and appearance of slower frequencies in the 5-7 Hz theta range. Stage II sleep was characterized by further slowing of the background in the delta and theta range, the presence of vertex waves, and 14 Hz sleep spindles. No focal abnormalities or epileptiform discharges were seen. IMPRESSION: This is an abnormal EEG characterized by an unusually large amount of intermixed theta activity seen in the reportedly awake state. COMMENT: The study is consistent with a mild encephalopathy. James Chowdhury M.D., M.S.P.H. DR: YADY JOB#: [id number] [facility]
[2017-01-04] VITALS: BP 153/63
[2017-01-04 04:00] VITALS: BP 161/60
[2017-01-04 08:00] VITALS: BP 136/81
[2017-01-04] MEDS: FLUoxetine 10mg cap ORAL SCH (08:43)
[2017-01-04] MEDS: Allopurinol 100mg Tab ORAL SCH (08:44)
[2017-01-04 12:00] VITALS: BP 145/65
--- NOTE | 2017-01-04 14:31 | Cardiac Electrophysiology PN ---
Assessment/Plan Assessment/Plan 1. Weakness, bradycardia, and syncope. Keep the patient off any sinus or AV luis blocking agents. Echo EF 60 to 65%. Orthostatic vital signs were negative. Had EEG but couldn 't go thru MRI. Repeat Ct brain ordered. 2. Benign prostatic hypertrophy. 3. Azotemia. 4. Mild anemia. MIRI RN Subjective Subjective No chest pain or SOB.Remains on tele. Objective Last 24 Hour Vital Signs Date Time Temp Pulse Resp B/P (MAP) Pulse Ox O2 Delivery O2 Flow Rate FiO2 01/04/17 12:00 97.5 60 21 145/65 99 Room Air 01/04/17 11:56 61 01/04/17 08:02 60 01/04/17 08:00 97.9 63 20 136/81 99 Room Air 01/04/17 05:10 54 01/04/17 04:00 96.8 58 21 161/60 98 Room Air 01/04/17 00:00 59 01/04/17 00:00 97.2 56 20 153/63 97 Room Air 01/03/17 20:00 63 01/03/17 20:00 97.0 63 20 141/55 98 Room Air 01/03/17 16:00 61 01/03/17 15:30 98.2 64 20 113/61 98 Room Air Intake and Output 01/04/17 01/05/17 19:00 07:00 Intake Total 525 ml Balance 525 ml IV Total 525 ml Objective HEAD AND NECK: No JVD. LUNGS: Clear. CARDIOVASCULAR: Regular S1 and S2 with no gallop or murmur. ABDOMEN: Soft and nontender. EXTREMITIES: No pitting edema. LAVONNE HUTCHINS Jan 04, 2017 14:31
[2017-01-04 16:00] VITALS: BP 151/61
[2017-01-05 18:38] LABS: VITAMIN D 25-OH TOTAL 33 ng/mL (.)
[2017-01-06 07:17] LABS: A/G RATIO 1.6 (0.7-1.7); ABNORMAL PROTEIN BAND 1 0.5 g/dL (Not Observed); ALBUMIN 3.9 g/dL (2.9-4.4); ALPHA-1 GLOBULIN 0.2 g/dL (0.0-0.4); ALPHA-2 GLOBULIN 0.6 g/dL (0.4-1.0); BETA GLOBULIN 0.7 g/dL (0.7-1.3); GLOBULIN, TOTAL 2.5 g/dL (2.2-3.9); TOTAL PROTEIN 6.4 g/dL (6.0-8.5)
--- NOTE | 2017-01-08 23:40 | Diagnostic Imaging Report ---
APPROVED REPORT CPT Code: 24019 Vascular Symptoms Syncope CAROTID (BILATERAL) - Imaging reveals no significant plaque within the right and left extracranial carotid arteries. The Doppler spectral flow analysis is within normal limits throughout the extracranial carotid arteries bilaterally. VERTEBRAL- The vertebral arteries are within normal limits.
--- NOTE | 2017-01-13 06:48 | Discharge Summary ---
Discharge Summary Hospital Course Date of Admission Jan 02, 2017 at 01:02 Date of Discharge Jan 04, 2017 at 17:10 Admitting Diagnosis SYNCOPE Reason for Hospitalization: syncope HPI 86y/o male with pmh of gout, depression, borderline DM, prostate CA who presents with syncope and AMS. Pt had a fall abt 1 week ago at home--he fell down and bumped his R side of his head. He did not see a doctor. He notes dizziness with standing, like he is abt to passout. He describes it as lightheadedness, vertigo and imbalance. He also c/o generalized weakness. The paramedics were called in and when they stood him up, he stiffened up and his eyes rolled back and he was unresponsive. After about a minute, he became responsive again. Consultations Cardiology, Neurology Hospital Course Pt was admitted and ruled out for ACS with serial trop/EKG. Orthostatic vitals were done and unremarkable. CT head neg. Labs showed borderline low Vit B12 deficiency. Pt was started on supplementation. TTE showed normal EF. Carotid duplex unremarkable. EEG showed mild encephalopathy but no e/o seizures. MRI brain was ordered but pt unable to tolerate so it was canceled. Pt was seen by PT/OT. SNF was recommended but pt refused. Syncope likely 2/2 orthostasis vs bradycardia vs autonomic process. Falls maybe 2/2 imbalance from B12 deficiency. Home health was ordered for continued PT/OT and home safety evaluation. Discharge physical exam General: alert, cooperative, no distress, appears stated age Head: normocephalic, without obvious abnormality, atraumatic Eyes: conjunctivae/corneas clear. PERRL, EOM's intact Throat: lips, mucosa, and tongue normal. MMM Neck: supple, symmetrical, trachea midline, and no JVD Lungs: clear to auscultation bilaterally Heart: regular rate and rhythm, S1, S2 normal, no murmur, click, rub or gallop Abdomen: soft, non-tender, non-distended, bowel sounds normal; no masses or organomegaly Extremities: extremities normal, atraumatic, no cyanosis or edema Pulses: 2+ and symmetric Skin: skin color, texture, turgor normal; no rashes or lesions Neurologic: grossly normal, no focal deficits Discharge Medications Continued Medications: Allopurinol* (Allopurinol*) 100 Mg Tablet 100 MG ORAL DAILY, TAB Fluoxetine Hcl* (Fluoxetine Hcl*) 10 Mg Capsule 10 MG ORAL DAILY, CAP [Glaucoma Eye Drops] () Discharge Condition Upon Discharge: stable Discharge Disposition Patient was discharged to Home with Home Health(06) Discharge Diagnoses: (1) Syncope (2) Fall with head trauma (3) Acute encephalopathy (4) Generalized weakness (5) B12 deficiency (6) Bradycardia (7) Depression (8) Prostate CA (9) Gout (10) Borderline diabetes mellitus (11) MCI (mild cognitive impairment) Jammie Hernandez M.D. Jan 13, 2017 06:48
== END 2017-01-04 17:10 | disposition home health service (06) | DRG 312 ==
LOC: EDBD 23:24 → EMR 23:50 → 2E 01-02 01:02 → EDBEDREQ 01-02 01:47 → 2E 01-03 14:00
DX: R55 Syncope and collapse (principal); G93.40 Encephalopathy, unspecified; R00.1 Bradycardia, unspecified; S09.90XA Unspecified injury of head, initial encounter; I95.1 Orthostatic hypotension; E53.8 Deficiency of other specified B group vitamins; G31.84 Mild cognitive impairment of uncertain or unknown etiology; R73.03 Prediabetes; Z85.46 Personal history of malignant neoplasm of prostate; Z91.81 History of falling; R42 Dizziness and giddiness; H40.9 Unspecified glaucoma; M10.9 Gout, unspecified; F32.9 Major depressive disorder, single episode, unspecified; R53.1 Weakness; N40.0 Benign prostatic hyperplasia without lower urinary tract symptoms; D64.9 Anemia, unspecified; Z23 Encounter for immunization
CPT/HCPCS: 36415; 70450; 71010; 80048; 80053; 80061; 81003; 82306; 82550; 82553; 82607; 82746; 83036; 83735; 83880; 84100; 84165; 84443; 84484; 85025; 85651; 86592; 90630; 90732; 93005; 93306; 93880; 95819; 99285